=== PATIENT | female | born 1955 | race Caucasian/White ===

== ENCOUNTER → 2016-09-29 | Outpatient (CLI) | payer OTHER | END | disposition disaster alternative care site (69) | LOC: GRAD 16:11 | DX: R07.81 Pleurodynia (principal); S82.402D Unspecified fracture of shaft of left fibula, subsequent encounter for closed fracture with routine healing; R79.1 Abnormal coagulation profile; J98.11 Atelectasis | CPT/HCPCS: Q9967 ==